=== PATIENT | female | born 2000 | race Caucasian/White ===

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

== ENCOUNTER 2020-12-15 15:41 | Emergency (ER) | payer BC ==
[2020-12-15 15:57] VITALS: BP 123/76; PULSE 79
[2020-12-15] MEDS ORDERED: Sodium Chloride 0.9% 1,000 ML IV ONE (16:27)
[2020-12-15] MEDS ORDERED: Sodium Chloride 0.9% 10 ML Syringe FLUSH PRN (16:27)
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
[2020-12-15] MEDS ORDERED: Ketorolac 30 MG/ML SDV IVPUSH ONE (16:53)
[2020-12-15] MEDS ORDERED: Tamsulosin 0.4 MG Cap.ER PO ONE (18:02)
--- NOTE | 2020-12-15 18:06 | CT ---
CT abdomen and pelvis Technique: Multiple axial sections through the abdomen and pelvis were obtained. Intravenous contrast and oral contrast were not utilized. Study has been performed as a ureteral stone protocol. Comparison: Prior CT abdomen and pelvis study of 06/10/17. Findings: Small nonobstructing stone is noted within the lower left kidney measuring approximately 1-1.5 mm. No ureteral dilatation is seen. No ureteral calculi are seen. Visualized lung bases show nothing acute. Noncontrast appearance of the liver shows no focal abnormality. Gallbladder contains no calcified gallstones. Spleen size is normal. Adrenal glands show no nodule. No discrete abnormality is appreciated within the pancreas. Abdominal aorta shows no aneurysm. No retroperitoneal adenopathy is seen. No discrete mesenteric abnormalities are seen. Appendix is seen which is normal. No pelvic mass or adenopathy is seen. Mild increased stool is seen throughout the colon. No small bowel dilatation is seen. No free fluid or inflammatory change is seen. Bone window settings were reviewed which show no acute osseous abnormality. Impression: 1. Increased stool throughout the colon. 2. Small nonobstructing stone measuring 1-1.5 mm within the lower left kidney. No ureteral dilatation or ureteral stone is seen. 3. No additional abnormality is identified on noncontrast CT study of the abdomen and pelvis. Diagnostic code #2
== END 2020-12-15 18:29 | disposition home or self-care (01) ==
LOC: JD.ED 15:41
DX: N20.0 Calculus of kidney (principal); K59.00 Constipation, unspecified; Z72.0 Tobacco use; Z88.1 Allergy status to other antibiotic agents; Z88.5 Allergy status to narcotic agent
CPT/HCPCS: 36415; 74176; 80053; 80306; 81001; 81025; 85025; 86140; 96372; 99284; A9270; J1885; J7030

== ENCOUNTER 2021-04-22 11:11 | Emergency (ER) | payer BC ==
[2021-04-22] MEDS ORDERED: Sodium Chloride 0.9% 1,000 ML IV ONE (12:18)
[2021-04-22] MEDS ORDERED: Sodium Chloride 0.9% 10 ML Syringe FLUSH PRN (12:18)
[2021-04-22] MEDS ORDERED: HYDROmorphone 0.5 MG/0.5 ML Syringe IVPUSH ONE ×2 (12:18→16:18)
[2021-04-22] MEDS ORDERED: Ondansetron 4 MG/2 ML SDV IVPUSH ONE (12:18)
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
[2021-04-22] MEDS ORDERED: EPINEPHrine 1 MG/ML SDV IM PRN (16:18)
[2021-04-22] MEDS ORDERED: Famotidine 20 MG/2 ML SDV IVPUSH PRN (16:18)
[2021-04-22] MEDS ORDERED: methylPREDNISolone Sodium Succinate 125 MG/2 ML SDV IVPUSH PRN (16:18)
[2021-04-22] MEDS ORDERED: diphenhydrAMINE 50 MG/ML SDV IVPUSH PRN (16:18)
--- NOTE | 2021-04-22 16:26 | US ---
Bilateral lower extremity deep venous ultrasound: Duplex and color Doppler evaluation was obtained, the femoral, proximal greater saphenous, superficial femoral, popliteal, posterior tibial and peroneal veins. Comparison: No prior venous imaging is available. Findings: Normal phasic flow, augmentation and compression are seen within the visualized veins. Impression: 1. No evidence of deep venous thrombosis within either the right or left lower extremity. Diagnostic code #1
[2021-04-22] MEDS ORDERED: Sodium Chloride 0.9% 10 ML Syringe FLUSH SCH (16:30)
[2021-04-22] MEDS ORDERED: Bamlanivimab 700 MG, ETESEVIMAB 1,400 MG in Sodium Chloride 0.9% 100 ML IV ONE (16:45)
[2021-04-22 17:57] VITALS: BP 114/66; PULSE 80
== END 2021-04-22 19:11 | disposition home or self-care (01) ==
LOC: JD.ED 11:11
DX: O98.511 Other viral diseases complicating pregnancy, first trimester (principal); U07.1 COVID-19; Z88.1 Allergy status to other antibiotic agents; Z88.8 Allergy status to other drugs, medicaments and biological substances; Z23 Encounter for immunization; Z3A.11 11 weeks gestation of pregnancy
CPT/HCPCS: 36415; 80053; 83735; 84484; 85025; 85379; 86140; 93005; 93970; 96361; 96374; 96375; 96376; 99284; J1170; J2405; J7030; M0245; Q0245

== ENCOUNTER 2021-10-13 08:11 | Inpatient (IN) | payer BC ==
[2021-10-13] MEDS ORDERED: Ondansetron 4 MG Tab.DIS PO PRN ×2 (09:07→13:47)
[2021-10-13] MEDS ORDERED: Lactated Ringers 1,000 ML IV ONE (09:08)
[2021-10-13] MEDS ORDERED: Acetaminophen/oxyCODONE 325-5 MG Tab PO ONE (09:09)
[2021-10-13] MEDS ORDERED: Dextrose 5%-Lactated Ringers 1,000 ML IV SCH ×2 (09:15→13:47)
[2021-10-13] MEDS ORDERED: Metoclopramide 10 MG/2 ML SDV IVPUSH ONE (10:22)
[2021-10-13] MEDS ORDERED: Sodium Chloride 0.9% 10 ML Syringe FLUSH PRN (10:22)
[2021-10-13] MEDS ORDERED: Citric Acid/Sodium Citrate Solution 30 ML Cup PO ONE (10:22)
[2021-10-13] MEDS ORDERED: Clindamycin Phosphate in D5W 900 MG in Premix Bag 1 BAG IV ONE ×2 (10:27)
[2021-10-13] MEDS ORDERED: Lactated Ringers 1,000 ML IV SCH (10:30)
[2021-10-13] MEDS ORDERED: Bupivacaine 0.5% 30 ML SDV ONE (10:33)
[2021-10-13] MEDS ORDERED: Morphine PF 10 MG/10 ML SDV ONE (10:49)
[2021-10-13] MEDS ORDERED: Ondansetron 4 MG/2 ML SDV ONE (10:49)
[2021-10-13] MEDS ORDERED: Ketorolac 30 MG/ML SDV ONE (10:49)
[2021-10-13] MEDS ORDERED: Oxytocin 10 Units/1 ML SDV ONE (10:49)
[2021-10-13] MEDS ORDERED: ceFAZolin 1 GM Vial ONE (10:49)
[2021-10-13] MEDS ORDERED: FLU Vacc QS2021-22 36MOS UP/PF 60 MCG/0.5 ML Syringe IM ONE (11:00)
[2021-10-13] MEDS ORDERED: Midazolam 1 MG/ML 2 ML SDV ONE (11:44)
[2021-10-13] MEDS ORDERED: Ondansetron 4 MG/2 ML SDV IVPUSH PRN (12:20)
[2021-10-13] MEDS ORDERED: diphenhydrAMINE 50 MG/ML SDV IVPUSH PRN ×2 (12:20→13:47)
[2021-10-13] MEDS ORDERED: fentaNYL 100 MCG/2 ML SDV IVPUSH PRN (12:20)
[2021-10-13] MEDS ORDERED: Naloxone 0.4 MG/ML SDV IVPUSH PRN (13:47)
[2021-10-13] MEDS ORDERED: Acetaminophen/oxyCODONE 325-5 MG Tab PO PRN (13:47)
[2021-10-13] MEDS ORDERED: ePHEDrine 50 MG/ML SDV IVPUSH PRN (13:47)
[2021-10-13] MEDS ORDERED: Calcium Gluconate 10% 1 GM/10 ML SDV IV PRN (14:03)
[2021-10-13] MEDS ORDERED: Magnesium Sulfate/Water 40 GM/1,000 ML BAG IV SCH (14:15)
[2021-10-13] MEDS ORDERED: Magnesium Sulfate/Water 2 GM in Premix Bag 1 BAG IV ONE (14:20)
[2021-10-13] MEDS: Lactated Ringers 1,000 ML IV SCH (14:27)
[2021-10-13] MEDS ORDERED: Magnesium Sulfate/Water 4 GM in Premix Bag 1 BAG IV ONE (14:45)
[2021-10-13] MEDS: Ibuprofen 800 MG Tab PO SCH (18:14)
[2021-10-13] MEDS: Simethicone 80 MG Tab.Chew PO SCH ×2 (18:16→23:32)
[2021-10-13] MEDS: Acetaminophen/oxyCODONE 325-5 MG Tab PO PRN ×2 (19:29→23:32)
[2021-10-13] MEDS: Docusate Sodium 100 MG Cap PO PRN (19:29)
[2021-10-13] MEDS ORDERED: Sodium Chloride 0.9% 10 ML Syringe FLUSH SCH (21:00)
[2021-10-14] MEDS: Ibuprofen 800 MG Tab PO SCH ×3 (01:55→17:09)
[2021-10-14] MEDS: Acetaminophen/oxyCODONE 325-5 MG Tab PO PRN ×6 (03:34→23:58)
[2021-10-14] MEDS: Lactated Ringers 1,000 ML IV SCH (06:28)
[2021-10-14] MEDS: Simethicone 80 MG Tab.Chew PO SCH ×4 (08:53→23:26)
[2021-10-14] MEDS: Prenatal Multivitamin with Calcium/Folic Acid/Iron Tab PO SCH (08:53)
[2021-10-14] MEDS: Docusate Sodium 100 MG Cap PO PRN (19:49)
[2021-10-15] MEDS: Ibuprofen 800 MG Tab PO SCH ×3 (02:06→16:43)
[2021-10-15] MEDS: Acetaminophen/oxyCODONE 325-5 MG Tab PO PRN ×4 (04:03→16:43)
[2021-10-15] MEDS: Prenatal Multivitamin with Calcium/Folic Acid/Iron Tab PO SCH (10:00)
[2021-10-15] MEDS: Docusate Sodium 100 MG Cap PO PRN (10:02)
[2021-10-15] MEDS: Simethicone 80 MG Tab.Chew PO SCH ×3 (10:03→16:43)
[2021-10-15 18:42] VITALS: BP 131/82; PULSE 83
== END 2021-10-15 18:30 | disposition home or self-care (01) | DRG 540 ==
LOC: JD.OBCHECK 08:11 → JD.OB 08:13 → JD.OBCHECK 10:22 → JD.OB 11:06
PROVIDERS: ADMIT Obstetrics & Gynecology; ATTEND Obstetrics & Gynecology
PROC: 10D00Z1 Extraction of Products of Conception, Low, Open Approach (ICD-10-PCS; principal; 2021-10-13)
DX: O14.14 Severe pre-eclampsia complicating childbirth (principal); O34.211 Maternal care for low transverse scar from previous cesarean delivery; Z3A.36 36 weeks gestation of pregnancy; Z37.0 Single live birth; Z88.1 Allergy status to other antibiotic agents; Z87.891 Personal history of nicotine dependence
CPT/HCPCS: 01961; 36415; 59025; 80306; 81001; 83735; 85025; 86592; 86850; 86900; 86901; 94762; A9270-GY; J0690; J1580; J1885; J2250; J2274; J2405; J2590; J2765; J3475; J3490; J7120

== ENCOUNTER 2022-07-31 20:51 | Emergency (ER) | payer BC ==
[2022-07-31] MEDS ORDERED: HYDROmorphone 1 MG/ML Syringe IM ONE (22:05)
[2022-07-31] MEDS ORDERED: Ketorolac 60 MG/2 ML SDV IM ONE (23:25)
[2022-08-01 06:08] VITALS: BP 114/63; PULSE 89
== END 2022-07-31 23:45 | disposition home or self-care (01) ==
LOC: JD.ED 20:51
DX: L08.9 Local infection of the skin and subcutaneous tissue, unspecified (principal); Z88.8 Allergy status to other drugs, medicaments and biological substances; Z88.1 Allergy status to other antibiotic agents; Z86.16 Personal history of COVID-19; Z79.82 Long term (current) use of aspirin
CPT/HCPCS: 96372; 99283; J1170; J1885; 99282

== ENCOUNTER 2022-08-25 21:05 | Emergency (ER) | payer BC ==
[2022-08-25 21:14] VITALS: BP 125/77; PULSE 77
[2022-08-25] MEDS ORDERED: Lidocaine 1% with EPINEPHrine 1:100,000 20 ML MDV ONE (21:22)
[2022-08-25] MEDS ORDERED: Lidocaine 1.5% with EPINEPHrine 1:200,000 5 ML Amp INJECT ONE (21:39)
[2022-08-25] MEDS ORDERED: Lidocaine 1% with EPINEPHrine 1:100,000 20 ML MDV INJECT ONE (21:41)
== END 2022-08-25 22:05 | disposition home or self-care (01) ==
LOC: JD.ED 21:05
DX: L76.21 Postprocedural hemorrhage of skin and subcutaneous tissue following a dermatologic procedure (principal); Z88.1 Allergy status to other antibiotic agents; Z88.8 Allergy status to other drugs, medicaments and biological substances; Z79.82 Long term (current) use of aspirin; Z86.16 Personal history of COVID-19
CPT/HCPCS: 12011; 99282; J3490

== ENCOUNTER 2023-01-12 16:54 | Emergency (ER) | payer BC ==
[2023-01-12 17:20] VITALS: BP 120/74; PULSE 83
[2023-01-12] MEDS ORDERED: Metoclopramide 10 MG/2 ML SDV IVPUSH ONE (17:32)
[2023-01-12] MEDS ORDERED: Sodium Chloride 0.9% 1,000 ML IV ONE (17:32)
[2023-01-12 17:46] LABS: BASOPHILS ABSOLUTE AUTO 0.02 K/mm3 (0.01-0.08); BASOPHILS PERCENT AUTO 0.2 % (0.1-1.2); EOSINOPHILS ABSOLUTE AUTO 0.13 K/mm3 (0.04-0.36); EOSINOPHILS PERCENT AUTO 1.5 (0.7-5.8); HEMATOCRIT 35.5 % (34.1-44.9); HEMOGLOBIN 12.1 gm/dl (11.2-15.7); IMMATURE GRAN ABSOLUTE AUTO 0.01 K/mm3 (0.00-0.10); IMMATURE GRAN PERCENT AUTO 0.1 % (<=1.0); LYMPHOCYTES ABSOLUTE AUTO 2.67 K/mm3 (1.18-3.74); LYMPHOCYTES PERCENT AUTO 31.7 % (19.3-51.7); MEAN CORPUSCULAR HEMOGLOBIN 31.6 pg (25.6-32.2); MEAN CORPUSCULAR HGB CONC 34.1 g/dl (32.2-35.5); MEAN CORPUSCULAR VOLUME 92.7 fl (79.4-94.8); MEAN PLATELET VOLUME 9.7 fl (9.4-12.3); MONOCYTES ABSOLUTE AUTO 0.46 K/mm3 (0.24-0.36); MONOCYTES PERCENT AUTO 5.5 % (4.7-12.5); NEUTROPHILS ABSOLUTE AUTO 5.13 K/mm3 (1.56-6.13); PLATELET COUNT,PLT 233 K/mm3 (182-369); RED BLOOD CELL COUNT 3.83 M/mm3 (3.98-5.22); WHITE BLOOD CELL COUNT,WBC 8.42 K/mm3 (3.98-10.04)
[2023-01-12 17:57] LABS: A/G RATIO 0.9 (1-2); ALBUMIN 3.3 g/dl (3.4-5.0); ANION GAP 12.2 (5-15); BILIRUBIN TOTAL 0.1 mg/dL (0.2-1.0); BUN/CREATININE RATIO 33.3 (14-18); CALCIUM 8.8 mg/dL (8.5-10.1); CREATININE 0.3 mg/dL (0.55-1.02); EST CRCL DRUG DOSING (CG) 261.57 mL/min; MAGNESIUM 1.7 mg/dL (1.8-2.4); POTASSIUM,K 4.2 mEq/L (3.5-5.1); PROTEIN TOTAL,TP 6.8 g/dl (6.4-8.2)
== END 2023-01-12 18:09 | disposition left against medical advice (07) ==
LOC: JD.ED 16:54
DX: O99.891 Other specified diseases and conditions complicating pregnancy (principal); R51.9 Headache, unspecified; Z86.16 Personal history of COVID-19; Z79.899 Other long term (current) drug therapy; Z88.1 Allergy status to other antibiotic agents; Z88.8 Allergy status to other drugs, medicaments and biological substances; Z3A.16 16 weeks gestation of pregnancy
CPT/HCPCS: 36415; 80053; 83735; 85025; 96374; 99283; J2765; J7030